=== PATIENT | female | born 1985 | race Caucasian/White ===

== ENCOUNTER 2016-10-06 03:27 | Emergency (ER) | payer OTHER ==
[~2016-10-06] VITALS: Ht 157.5 cm; Wt 123.5 kg
[~2016-10-06 03:27] MED LIST: ALBU8.5H3 INH; CETI10CA PO; COUGH; GUAI473L22 PO; IBUP400T22 PO
[2016-10-06 03:31] VITALS: Ht 157.5 cm; Wt 123.5 kg
[2016-10-06] MEDS ORDERED: IBUP400T22 PO (03:57)
--- NOTE | 2016-10-06 04:02 | ERA ---
ER Documentation Chief Complaint Date/Time DATE: 10/06/16 TIME: 03:59 Chief Complaint chest pressure pain,left arm numbness & tingling radiating to left neck HPI This is a 31-year-old female presenting with a one-day history of chest pain left arm numbness and tingling that radiates to the neck. Patient has not taken any medications to relieve the symptoms. States that the symptoms are worse with deep breaths. Pt denies previous SC/VTE, crushing-/squeezing-like CP , upper back pain, aching arm pain, leg pain/swelling, recent travel, oral contraceptive use, fatigue, dyspnea, syncope, palpitations, or epigastric pain. Patient also denies any personal or family cardiac history. Patient has no other complaints and describes no other associated manifestations. ROS All systems reviewed and are negative except as per history of present illness. Medications Home Meds Active Scripts Ibuprofen* (Motrin*) 400 Mg Tab, 400 MG PO Q6, #30 TAB Prov:JOANNA CARROLL PA-C 10/06/16 Ibuprofen* (Motrin*) 400 Mg Tab, 400 MG PO Q6H Y for PAIN AND OR ELEVATED TEMP, #30 TAB Prov:FELICIA GRIFFIN NP 11/06/15 Albuterol Sulfate* (Proair HFA*) 8.5 Gm Hfa.aer.ad, 2 PUFF INH Q4H Y for WHEEZING AND SOB, #1 INHALER Prov:FELICIA GRIFFIN NP 11/06/15 Cetirizine Hcl* (Zyrtec*) 10 Mg Capsule, 10 MG PO DAILY, #30 TAB.CHEW Prov:FELICIA GRIFFIN NP 11/06/15 Guaifenesin-Codeine Phosphate* (Guaifenesin* AC Cough Syrup) 473 Ml Liquid, 5 ML PO Q4H Y for COUGH, #60 ML Prov:FELICIA GRIFFIN NP 11/06/15 Albuterol Sulfate* (Proair HFA*) 8.5 Gm Hfa.aer.ad, 2 PUFF INH Q4H Y for WHEEZING AND SOB, #1 INHALER Prov:FELICIA GRIFFIN NP 11/06/15 Reported Medications [OTC cough] Unknown Strength No Conflict Check 11/05/15 Allergies Allergies: Coded Allergies: No Known Allergy (Unverified , 08/14/13) PMhx/Soc Medical and Surgical Hx: pt denies Medical Hx, pt denies Surgical Hx History of Surgery: No Anesthesia Reaction: No Hx Neurological Disorder: No Hx Respiratory Disorders: No Hx Cardiac Disorders: No Hx Psychiatric Problems: No Hx Miscellaneous Medical Probl: No Hx Alcohol Use: No Hx Substance Use: No Hx Tobacco Use: No Smoking Status: Never smoker Physical Exam Vitals Vital Signs Date Time Temp Pulse Resp B/P Pulse Ox O2 Delivery O2 Flow Rate FiO2 10/06/16 03:31 99.2 107 18 141/82 97 Physical Exam Const: Morbidly obese 31-year-old female no acute distress Head: Normocephalic, Atraumatic. Eyes: Non-injected; No discharge or foreign body. EOMI and RISHI bilaterally. Ears: Normal External Ears, EACs clear, TM normal bilaterally without erythema. Nose: Normal external nose; no discharge, septal deviation, or sinus tenderness. Oral: No oral edema visualized. Mucous membranes moist and pink. Neck: No cervical lymphadenopathy, masses or goiter palpated. Trachea midline. Supple ~ No meningismus. Pulm: Good air movement in upper and lower respiratory tracts. No dyspnea, stridor, tripoding or drooling. Clear to auscultation bilaterally. Cardio: Chest tenderness to palpation. Regular rate and rhythm; No murmurs, gallops or rubs auscultated. No JVD grossly observed. Radial and posterior tibial pulses 2+ bilaterally. No cyanosis. Capillary refill less than 2 seconds. Abd: Soft, non tender, non distended. No guarding, masses. Normal bowel sounds. No McBurney's point tenderness. MS: Normal motor strength, normal tone with gross examination. Skin: No petechiae or rashes. No ulcer, induration, jaundice. Good turgor. Back: No midline, flank or CVA tenderness. Ext: No edema or palpable cord. Normal movement of all extremities grossly observed. Neur: Awake, alert and oriented x3. Neurovascularly intact bilaterally. Psych: Normal Mood and Affect. Procedures/MDM The patient was evaluated and worked up for atypical chest pain as described in the history and physical exam. Physical exam revealed reproduce chest pain with deep inspiration and palpation of the sternum most consistent with costochondritis. The workup included an EKG which was read by the attending as unremarkable. Most likely diagnosis is chest wall pain. The treatment plan will thus include ibuprofen 400 mg p.o. as needed for pain. At this time I do not suspect the chest pain to be due to an acute coronary syndrome, pericarditis , aortic dissection, pulmonary embolism, pneumothorax, esophageal tear/rupture, pneumonia or pancreatitis. I have spoke with the patient regarding their condition and future management. They have verbally responded that they understand their status and treatment plan. The patients vitals are stable, and their current condition is appropriate for discharge. The patient will be given discharge instructions with return precautions. Departure Diagnosis: Primary Impression: Chest wall pain Condition: Stable Patient Instructions: Chest Wall Pain, Costochondritis Additional Instructions: Follow up with your PCP within the next 1-3 days for a more thorough evaluation and a possible referral to a specialist. Return the the emergency department immediately if symptoms worsen or change. If you have any questions regarding medications, ask your pharmacist or us before you leave. If any adverse reactions occur while taking your medications, discontinue the treatment and return to the emergency department immediately. Take your medications as directed, and complete the entire course of treatment. JOANNA CARROLL PA-C Oct 06, 2016 04:02
== END 2016-10-06 04:04 | disposition home or self-care (01) ==
LOC: FTE 03:27
DX: R07.89 Other chest pain (principal)
CPT/HCPCS: 93005; Z7502